=== PATIENT | female | born 1955 | race Caucasian/White ===

== ENCOUNTER → 2017-03-29 | Outpatient (CLI) | payer OTHER ==
[~2017-03-29] MED LIST: CLON1TAB3 PO; CRG40 PO; FERR1TAB24 PO; FURO-85 PO; LSX20 PO; NADO20TA PO; PANT40TA PO; POTA20TA16 PO; PRT40 PO; SPIR50TA2 PO
[2017-03-29 17:41] LABS: URINE APPEARANCE CLEAR (CLEAR); URINE BILIRUBIN NEG (NEG); URINE COLOR YELLOW; URINE NITRITE NEG (NEG); URINE SPECIFIC GRAVITY 1.012 (1.000-1.030); UROBILINOGEN NEG (NEG)
[2017-03-29 17:52] LABS: MANUAL MICROSCOPIC REQUIRED? NO; REVIEW REQ? NO
[2017-03-29 18:29] LABS: BLOOD UREA NITROGEN 33 mg/dl (7-18); BUN/CREATININE RATIO 19.3 (10-20); CALCIUM 9.2 mg/dl (8.5-10.1); CARBON DIOXIDE 31 mmol/L (21-32); CHLORIDE 98 mmol/L (98-107); GLUCOSE 50 mg/dl (70-99); PHOSPHORUS 3.2 mg/dl (2.5-4.9); POTASSIUM 3.9 mmol/L (3.5-5.1); SODIUM 136 mmol/L (136-145)
== END | disposition home or self-care (01) ==
LOC: C.LABBFT 12:23
PROVIDERS: ATTEND Internal Medicine Nephrology
DX: N18.3 Chronic kidney disease, stage 3 (moderate) (principal)

== ENCOUNTER → 2017-05-12 | Outpatient (CLI) | payer OTHER ==
[2017-05-12 12:50] LABS: BLOOD UREA NITROGEN 28 mg/dl (7-18); BUN/CREATININE RATIO 18.8 (10-20); CALCIUM 9.5 mg/dl (8.5-10.1); CARBON DIOXIDE 28 mmol/L (21-32); CHLORIDE 97 mmol/L (98-107); GLUCOSE 85 mg/dl (70-99); PHOSPHORUS 2.8 mg/dl (2.5-4.9); POTASSIUM 4.7 mmol/L (3.5-5.1); SODIUM 132 mmol/L (136-145)
== END | disposition home or self-care (01) ==
LOC: C.LABBFT 07:32
PROVIDERS: ATTEND Internal Medicine Nephrology
DX: N17.9 Acute kidney failure, unspecified (principal)

== ENCOUNTER → 2017-06-14 | Outpatient (CLI) | payer OTHER ==
[2017-06-14 12:28] LABS: BASO % 0.2 %; BASO ABS # 0.01 K/uL (0-0.2); COMPLETE YES; EOS % 1.1 %; HEMATOCRIT 41.6 % (37-47); IG% 0.2 %; LYMPH % 21.1 %; LYMPH ABS # 1.36 K/uL (1.2-3.4); MEAN CELL VOLUME 88.7 fL (80-100); MEAN CORPUSCULAR HEMOGLOBIN 29.2 pg (25-34); MEAN CORPUSCULAR HGB CONC 32.9 g/dl (32-36); MEAN PLATELET VOLUME 12.2 fL (7.4-10.4); MONO % 6.5 %; NEUT % 70.9 %; PLATELET COUNT 133 K/uL (130-400); RED BLOOD COUNT 4.69 M/uL (4.2-5.4); WHITE BLOOD COUNT 6.45 K/uL (4.8-10.8)
[2017-06-14 13:04] LABS: ALT/SGPT 20 U/L (12-78); BLOOD UREA NITROGEN 20 mg/dl (7-18); BUN/CREATININE RATIO 13.3 (10-20); CALCIUM 9.6 mg/dl (8.5-10.1); CARBON DIOXIDE 29 mmol/L (21-32); CHLORIDE 97 mmol/L (98-107); GLUCOSE 152 mg/dl (70-99); POTASSIUM 4.2 mmol/L (3.5-5.1); SODIUM 133 mmol/L (136-145)
[2017-06-14 13:15] LABS: ALB/GLOB RATIO 1.2 (0.9-2); ALKALINE PHOSPHATASE 86 U/L (45-117); AST/SGOT 21 U/L (15-37)
--- NOTE | 2017-06-22 13:06 | CODING QUERY MEDICAL NECESSITY ---
CQSUPPORTING DIAGNOSIS NEEDED A supporting diagnosis is required for the test/procedure performed on this patient in order for us to be reimbursed by the patient's insurance. Please provide a supporting diagnosis for the following test/procedure listed below next to the test name along with your signature. *If there is no additional diagnosis for this patient that would support the following test/procedure please document that below next to the test/procedure. Test(s)/Procedure(s) that require a supporting diagnosis: DOS 06/14/17 VITAMIN B12 TEST FOLIC ACID TEST Provider Signature: Date: Thank you [facility] Once completed, please kindly fax back to [phone] For questions please call [phone]
== END | disposition home or self-care (01) ==
LOC: C.LABBFT 11:04
PROVIDERS: ATTEND Internal Medicine
DX: S69.92XA Unspecified injury of left wrist, hand and finger(s), initial encounter (principal); D64.9 Anemia, unspecified; X58.XXXA Exposure to other specified factors, initial encounter

== ENCOUNTER 2017-07-07 01:54 | Emergency (ER) | payer OTHER ==
[~2017-07-07] VITALS: Ht 167.6 cm; Wt 68.4 kg
[~2017-07-07 01:54] MED LIST changes: -NADO20TA PO; -PANT40TA PO
[2017-07-07 01:59] VITALS: TEMP 36.4; Ht 167.6 cm; Wt 68.4 kg
[2017-07-07] MEDS ORDERED: PSEUDOEPHEDRINE HCL 30 MG TAB PO STA (02:11)
[2017-07-07] MEDS ORDERED: OXYMETAZOLINE HCL 0.05% NA SPR 15 ML BTL ONE (02:15)
[2017-07-07] MEDS ORDERED: NADO20TA PO (02:18)
[2017-07-07] MEDS ORDERED: PANT40TA PO (02:19)
[2017-07-07] MEDS ORDERED: SPIR50TA2 PO (02:20)
[2017-07-07 03:25] VITALS: BP 131/80; PULSE 52; O2SAT 98
--- NOTE | 2017-07-07 03:38 | EMERGENCY ROOM VISIT NOTE ---
History First contact with patient: 02:04 Chief Complaint: EAR PAIN Stated Complaint: EAR ACHE History of Present Illness The patient is a 61 year old female who presents to the Emergency Room with complaints of cough, congestion, right ear discomfort with runny nose for the past few days. Patient smokes. No fevers. Patient denies dysphagia, sore throat, neck stiffness, chest pain, dyspnea, abdominal pain, vomiting, diarrhea. She is tolerate by mouth fluids and food. No sinus pain or congestion. No dental pain. Review of Systems See HPI for pertinent positives & negatives. A total of 10 systems reviewed and were otherwise negative. Past Medical/Surgical History Medical Problems: (1) Anxiety (2) Bronchitis (3) Cellulitis (4) Cirrhosis of liver with ascites (5) Elevated LFTs (6) Hyperlipidemia (7) Peripheral edema (8) Renal insufficiency Family History Diabetes mellitus FHx: gallbladder disease FHx: heart disease Hypertension Kidney disease or stones Social History Smoking Status: Current Every Day Smoker Alcohol Use: occasionally Drug Use: none Marital Status: Housing Status: lives alone Occupation Status: disabled Current/Historical Medications Scheduled Clonazepam (Klonopin), 1 MG PO HS Ferrous Sulfate (Feosol), 2 TAB PO DAILY Furosemide (Lasix), 3 TAB PO QAM Furosemide (Furosemide), 2 TABS PO AFTERNOON Nadolol (Corgard), 20 MG PO QAM Pantoprazole (Protonix), 40 MG PO DAILY Potassium Ext Rel (Klor-Con), 40 MEQ PO BID Spironolactone (Aldactone), 50 MG PO DAILY Physical Exam Vital Signs Date Time Temp Pulse Resp B/P (MAP) Pulse Ox O2 Delivery O2 Flow Rate FiO2 07/07/17 03:25 52 131/80 98 07/07/17 01:59 36.4 56 19 122/67 96 Room Air Physical Exam VITALS: Vitals are noted on the nurse's note and reviewed by myself. Vital signs stable. GENERAL: Pleasant female, in no acute distress, nondiaphoretic, well-developed well-nourished. SKIN: The skin was without rashes, erythema, edema, or bruising. There is no tenting of the skin. Capillary reflex less than 2 seconds. HEAD: Normocephalic atraumatic. EARS: External auditory canals clear, tympanic membranes pearly saez without erythema or effusion bilaterally. EYES: Pupils equal round and reactive to light and accommodation. Conjunctivae without injection, sclerae without icterus. Extraocular movements intact. NOSE: Patent, turbinates without inflammation or discharge. No sinus tenderness. MOUTH: Mucous membranes moist. Pharynx without erythema or exudate. Uvula midline. Airway patent. Tongue does not deviate. NECK: Supple without nuchal rigidity. No lymphadenopathy. No thyromegaly. Cervical spine is nontender. No JVD. HEART: Regular rate and rhythm without murmurs gallops or rubs. LUNGS: Clear to auscultation bilaterally without wheezes, rales or rhonchi. No dullness to percussion. No retractions or accessory muscle use. ABDOMEN: Positive bowel sounds x 4. Normal tympanic percussion. Soft, nontender, without masses or organomegaly. Whelan sign negative. No guarding or rebound tenderness. MUSCULOSKELETAL: No muscle atrophy, erythema, or edema noted. NEURO: Patient was alert and oriented to person place and time. Normal sensation to light and sharp touch. No focal neurological deficits. Medical Decision & Procedures Medications Administered Medications (Trade) Dose Ordered Sig/Bakari Route Start Time Stop Time Status Last Admin Dose Admin Pseudoephedrine HCl (Sudafed Tab) 60 mg NOW STAT PO 07/07/17 02:11 07/07/17 02:13 DC 07/07/17 02:29 60 MG Oxymetazoline HCl (Afrin 0.05% Nasal [place]) 1 sprays NOW ONCE NA 07/07/17 02:15 07/07/17 02:16 DC 07/07/17 02:29 1 SPRAYS ED Course Prior records/ancillary studies reviewed. Triage Nursing notes reviewed. The patient's history was concerning for a cough, congestion, right ear discomfort. Differential diagnosis: Etiologies such as viral syndrome, eustachian tube dysfunction, URI, peritonsillar abscess, retropharyngeal abscess, otitis, pneumonia, influenza, as well as others were entertained. ER treatment provided: Afrin, Sudafed On reassessment the patient felt better. Diagnostics interpreted by me: Imaging studies: Chest x-ray with no acute consolidation, pneumothorax or free air per my interpretation This appears to be consistent with URI with eustachian tube dysfunction. Patient was neurovascularly and neurologically intact. No signs of meningitis. No otitis. No pneumonia on x-ray. She is advised to take decongestants and follow-up family care in a few days or here in the ER sooner for high fevers, difficulty breathing, neck stiffness, worsening signs or symptoms or as needed. By the evaluation outlined above emergent etiologies such as peritonsillar abscess, retropharyngeal abscess, otitis, pneumonia, meningitis, urinary tract infection, sepsis, bacteremia, as well as others were deemed relatively unlikely. The pt informed about the findings as listed above. All questions were answered and pleased with the treatment. Return instructions were outlined and the patient was discharged in stable condition. Case reviewed with my attending Referral: The patient was referred back to their primary care physician for follow-up in 2 to 3 days for a recheck of the current condition. Medical Decision As above Medication Reconcilliation Current Medication List: was personally reviewed by me Blood Pressure Screening Patient's blood pressure: Normal blood pressure Impression Primary Impression: Eustachian tube dysfunction Additional Impression: Upper respiratory infection Departure Information Referrals Primo Escobar M.D. (PCP) Patient Instructions My [facility] Problem Qualifiers Primary Impression: Eustachian tube dysfunction Laterality: right Qualified Codes: H69.81 - Other specified disorders of eustachian tube, right ear Additional Impression: Upper respiratory infection URI type: unspecified URI Qualified Codes: J06.9 - Acute upper respiratory infection, unspecified
--- NOTE | 2017-07-07 06:32 | EMERGENCY ROOM VISIT NOTE ---
ED Visit Note First contact with patient: 02:04 I have personally seen and evaluated the patient with the PA. I agree with the diagnosis and management decisions and have been personally involved in the case. Please see Johanna Finn PA-C's notes for further details of the history, physical and visit.
--- NOTE | 2017-07-07 07:22 | DIAGNOSTIC IMAGING REPORT ---
CHEST 2 VIEWS ROUTINE HISTORY: 61 years-old Female acute cough with history of tobacco abuse. COMPARISON: Chest radiograph 02/07/2015. TECHNIQUE: Frontal and lateral views of the chest. FINDINGS: Cardiomediastinal and hilar silhouettes are within normal limits. There is no pneumothorax, pleural effusion or focal airspace consolidation. Subsegmental linear opacities of the left lung base suggest minimal atelectasis or scarring. Lungs are mildly hyperinflated. The bones are grossly intact. There is mild convex right curvature of the lumbar spine. Degenerative changes involve the bilateral AC joints. IMPRESSION: No acute cardiopulmonary process. The above report was generated using voice recognition software. It may contain grammatical, syntax or spelling errors. Electronically signed by: Miah Burgess M.D. 07/07/2017 7:21 AM Dictated Date/Time: 07/07/2017 7:19 AM
== END 2017-07-07 03:26 | disposition home or self-care (01) ==
LOC: C.EDB 01:55
DX: H69.81 Other specified disorders of Eustachian tube, right ear (principal); J06.9 Acute upper respiratory infection, unspecified; F17.210 Nicotine dependence, cigarettes, uncomplicated; Z79.899 Other long term (current) drug therapy

== ENCOUNTER → 2017-10-10 | Outpatient (CLI) | payer OTHER ==
[~2017-10-10] MED LIST changes: -CRG40 PO; +NADO20TA PO; +PANT40TA PO; -PRT40 PO
[2017-10-10 12:50] LABS: URINE APPEARANCE CLEAR (CLEAR); URINE BILIRUBIN NEG (NEG); URINE COLOR YELLOW; URINE NITRITE NEG (NEG); URINE SPECIFIC GRAVITY 1.013 (1.000-1.030); UROBILINOGEN NEG (NEG)
[2017-10-10 13:05] LABS: MANUAL MICROSCOPIC REQUIRED? NO; REVIEW REQ? NO
[2017-10-10 13:13] LABS: BLOOD UREA NITROGEN 12 mg/dl (7-18); BUN/CREATININE RATIO 9.8 (10-20); CALCIUM 9.6 mg/dl (8.5-10.1); CARBON DIOXIDE 31 mmol/L (21-32); CHLORIDE 99 mmol/L (98-107); CREATININE 1.18 mg/dl (0.60-1.20); GLUCOSE 86 mg/dl (70-99); MAGNESIUM 2.2 mg/dl (1.8-2.4); PHOSPHORUS 2.2 mg/dl (2.5-4.9); POTASSIUM 3.7 mmol/L (3.5-5.1); SODIUM 139 mmol/L (136-145)
== END | disposition home or self-care (01) ==
LOC: C.LABBFT 07:11
PROVIDERS: ATTEND Internal Medicine Nephrology
DX: N18.3 Chronic kidney disease, stage 3 (moderate) (principal)

== ENCOUNTER → 2018-01-30 | Day surgery (SDC) | payer OTHER ==
[2018-01-25 07:38] VITALS: Ht 170.2 cm; Wt 63.6 kg
[~2018-01-30] VITALS: Ht 170.2 cm; Wt 63.6 kg
[~2018-01-30] MED LIST changes: +BUPR150T5 PO; +FENTANYL CITRATE INJ 50 MCG/1 ML 2 ML VIAL ONE; -FERR1TAB24 PO; +FLUO20CA35 PO; +LIDOCAINE HCL 2% 2 ML VIAL (20MG/ML) ONE; +PROPOFOL IV EMULSION 10 MG/ML 20 ML VIAL IV ONE; +RIFA550T2 PO; +SODIUM CHLORIDE 0.9% 500ML 500 ML IV ONE
[2018-01-30 08:26] VITALS: TEMP 36.4
--- NOTE | 2018-01-30 08:52 | Endo History and Physical ---
History & Physical Date of Service: Jan 30, 2018. Chief Complaint: Cirrhosis Referring Physician: Primo Escobar History of Present Illness Cirrhosis Past Medical History Arthritis, Anxiety, High Cholesterol, Hypertension, Liver Disease, Depression Past Surgical History Hx Cardiac Surgery: No Hx Internal Defibrillator: No Hx Pacemaker: No Hx Abdominal Surgery: No Hx of Implantable Prosthesis: No Hx Post-Op Nausea and Vomiting: No Hx Cancer Surgery: No Hx Thoracic Surgery: No Hx Orthopedic: Yes (LT THUMB) Hx Urinary Tract Surgery: No Family History None Social History Smoking Status: Current Every Day Smoker Hx Substance Use: No Hx Alcohol Use: No Allergies Coded Allergies: Atorvastatin (Verified Allergy, Intermediate, MUSCLE PAIN, 01/30/18) Cephalexin (Verified Allergy, Intermediate, SORE MOUTH, 01/30/18) "IT GETS REAL RAW" Simvastatin (Verified Allergy, Intermediate, MUSCLE PAIN, 01/30/18) Sulfa Antibiotics (Verified Allergy, Intermediate, SORE MOUTH, 01/30/18) "ITS GETS REAL RAW" Lisinopril (Verified Allergy, Unknown, COUGH, 01/30/18) Current Medications Reported Home Medications Medications Dose Route/Sig Max Daily Dose Days Date Category Xifaxan (Rifaximin) 550 Mg Tab 550 Mg PO BID 01/25/18 Reported Bupropion Hcl Xl (Bupropion Hcl) 150 Mg Tab 1 Tab PO QAM 01/25/18 Reported Prozac (Fluoxetine HCl) 20 Mg Cap 20 Mg PO BID 01/25/18 Reported Aldactone (Spironolactone) 50 Mg Tab 1.5 Tabs PO QAM 07/07/17 Reported Protonix (Pantoprazole Sodium) 40 Mg Tab 40 Mg PO QAM 07/07/17 Reported Corgard (Nadolol) 20 Mg Tab 20 Mg PO QAM 07/07/17 Reported Klor-Con (Potassium Chloride) 20 Meq Tabcr 40 Meq PO BID 07/10/15 Reported Furosemide 20 Mg Tab 2 Tabs PO AFTERNOON 07/10/15 Reported Lasix (Furosemide) 20 Mg Tab 3 Tab PO QAM 07/10/15 Reported Klonopin (Clonazepam) 1 Mg Tab 2 Tabs PO HS 11/24/13 Reported Vital Signs Weight (Kilograms): 63.64 Height (Feet): 5 Height (Inches): 7 Date Time Temp Pulse Resp B/P (MAP) Pulse Ox O2 Delivery O2 Flow Rate FiO2 01/30/18 08:26 36.4 53 18 131/75 (93) 99 Room Air Physical Exam General Appearance: no apparent distress Respiratory/Chest: Auscultation: breath sounds normal Cardiovascular: Heart Auscultation: RRR Abdomen: Inspection & Palpation: soft Assessment and Plan Cirrhosis - varices screening
--- NOTE | 2018-01-30 09:21 | Discharge Instructions ---
Endoscopy Patient Instructions Date / Procedure(s) Performed Jan 30, 2018. EGD Allergy Information Coded Allergies: Atorvastatin (Verified Allergy, Intermediate, MUSCLE PAIN, 01/30/18) Cephalexin (Verified Allergy, Intermediate, SORE MOUTH, 01/30/18) "IT GETS REAL RAW" Simvastatin (Verified Allergy, Intermediate, MUSCLE PAIN, 01/30/18) Sulfa Antibiotics (Verified Allergy, Intermediate, SORE MOUTH, 01/30/18) "ITS GETS REAL RAW" Lisinopril (Verified Allergy, Unknown, COUGH, 01/30/18) Discharge Date / Findings Jan 30, 2018. 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 - Do not drink alcohol the day of the procedure. - Do not drive a car or operate machinery until the day after the procedure. - Do not make any important decisions or sign important papers in 24 hours after the procedure. Following Day: - Return to full activity which may include returning to work/school. Diet Start your diet with liquids and light foods (jello, soup, juice, toast). Then eat your usual diet if not nauseated. Treatment For Common After Affects For mild abdominal pain, bloating, or excessive gas: - Rest - Eat lightly - Lie on right side Follow-Up Information Follow-up with Primo Escobar as scheduled Anesthesia Information What You Should Know You have had a procedure that required some medicine to reduce anxiety and discomfort. This treatment is called moderate sedation. After receiving the treatment, you may be sleepy, but you will be able to breathe on your own. The effects of the treatment may last for several hours. Follow these instructions along with Activity/Diet recommendations noted above: * Do NOT do anything where dizziness or clumsiness would be dangerous. * Rest quietly at home today, then you can be up and about tomorrow. * Have a responsible person stay with you the rest of today. * You may have had an I.V. today. If so, you may take the dressing off later today. Recommendations Call your doctor if: * Trouble breathing * Continuous vomiting for more than 24 hours * Temperature above 101 degrees * Severe abdominal pain or bloating * Pain not relieved by pain medicine ordered * There is increased drainage or redness from any incision * A large amount of rectal bleeding greater than 2-3 tablespoons. (If you had a polyp/s removed or have hemorrhoids, a small amount of blood - from the rectum is to be expected.) * You have any unanswered questions or concerns. IN THE EVENT OF A SERIOUS EMERGENCY, GO TO THE NEAREST EMERGENCY ROOM Your discharge instructions were prepared by provider Krissy Salazar. Patient Instructions Signature Page [place] Patient (or Guardian) Signature/Date: I have read and understand the instructions given to me by my caregivers. Caregiver/RN/Doctor Signature/Date: The above-named patient and/or guardian has received patient instructions on this date. + Original Patient Signature Page (only) stays with chart. Please make copy for patient.
--- NOTE | 2018-01-30 09:37 | GI REPORT ---
Procedure Date: 01/30/2018 8:49 AM Procedure: Upper GI endoscopy Indications: Cirrhosis rule out esophageal varices Medicines: See the Anesthesia note for documentation of the administered medications Complications: No immediate complications. Estimated Blood Loss: Estimated blood loss: none. Procedure: Pre-Anesthesia Assessment: - ASA Grade Assessment: III - A patient with severe systemic disease. After obtaining informed consent, the endoscope was passed under direct vision. Throughout the procedure, the patient's blood pressure, pulse, and oxygen saturations were monitored continuously. The Scope was introduced through the mouth, and advanced to the second part of duodenum. The upper GI endoscopy was accomplished without difficulty. The patient tolerated the procedure well. Findings: The esophagus and gastroesophageal junction were examined with white light from a forward view and retroflexed position. There were esophageal mucosal changes suspicious for short-segment Loya's esophagus, classified as Loya's stage C0-M2 per Hubbard criteria. These changes involved the mucosa at the upper extent of the gastric folds (40 cm from the incisors) extending to the Z-line (38 cm from the incisors). [place]-colored mucosa was present. The maximum longitudinal extent of these esophageal mucosal changes was 2 cm in length. Mucosa was biopsied with a cold forceps for histology. One specimen bottle was sent to pathology. No esophageal varices were seen. There were no gastric varices. There was mild snakeskin appearance to the mucosa of the body of the stomach. The duodenum was normal. Impression: - Esophageal mucosal changes suspicious for short-segment Loya's esophagus, classified as Loya's stage C0-M2 per Hubbard criteria. Biopsied. - No varices or portal HTN. Recommendation: - Discharge patient to home. Krissy Pathak M.D. Krissy Pathak MD 01/30/2018 9:37:23 AM This report has been signed electronically. Note Initiated On: 01/30/2018 8:49 AM I attest to the content of the Intraoperative Record and orders documented therein, exceptions below
--- NOTE | 2018-01-30 09:49 | Anesthesiology Progress Note ---
Anesthesia Post Op Note Date & Time Jan 30, 2018 at 09:48 Vital Signs Pain Intensity: 0 Vital Signs Past 12 Hours Date Time Temp Pulse Resp B/P (MAP) Pulse Ox O2 Delivery O2 Flow Rate FiO2 01/30/18 09:36 51 17 135/87 (103) 100 Room Air 01/30/18 09:21 75 17 113/77 (89) 100 Room Air 01/30/18 08:26 36.4 53 18 131/75 (93) 99 Room Air Notes Mental Status: alert / awake / arousable, participated in evaluation Pt Amnestic to Procedure: Yes Nausea / Vomiting: adequately controlled Pain: adequately controlled Airway Patency, RR, SpO2: stable & adequate BP & HR: stable & adequate Hydration State: stable & adequate Anesthetic Complications: no major complications apparent
[2018-01-30 09:51] VITALS: BP 146/89; PULSE 51; O2SAT 100
== END | disposition home or self-care (01) ==
LOC: C.GI 07:52
PROVIDERS: ATTEND Internal Medicine Gastroenterology
DX: K74.60 Unspecified cirrhosis of liver (principal); K22.70 Barrett's esophagus without dysplasia; M19.90 Unspecified osteoarthritis, unspecified site; F41.9 Anxiety disorder, unspecified; K44.9 Diaphragmatic hernia without obstruction or gangrene; K21.9 Gastro-esophageal reflux disease without esophagitis; E78.00 Pure hypercholesterolemia, unspecified; I10 Essential (primary) hypertension; F32.9 Major depressive disorder, single episode, unspecified; F17.200 Nicotine dependence, unspecified, uncomplicated; Z88.1 Allergy status to other antibiotic agents; Z88.2 Allergy status to sulfonamides; Z88.8 Allergy status to other drugs, medicaments and biological substances; Z90.89 Acquired absence of other organs